=== PATIENT | male | born 1960 | race Caucasian/White ===

== ENCOUNTER → 2017-01-10 | Outpatient (CLI) | payer OTHER ==
--- NOTE | 2017-01-11 05:54 | PAP/PSG TECHNICIAN REPORT ---
[facility] Tuber Helper Polysomnogram Report Study name: None Report date: 01/11/2017 Study date: 01/10/2017 Referring Physician: Von Kirby M.D. Name: ERICK SHANON Interpreting Physician: Baljit Kirby M.D. Date of : 1960 Tuber Helper: HOANG Edwards. Sex: Male Age: 56 StudyType: PSG Weight: 219 lbs Height: 56 years, Height 6' 2" Neck Circum:16.75 inches BMI: 28.11 Medications: Zoloft 60mg, Flonase 50mcg/act Patient History Study started on room air with ETCO2 monitoring in room #5. 56 yr old male here tonight for a possible split psg. He complains of EDS, loud snoring and gasping while sleeping. His ESS=8/24.Neck circ=16.75inches Parameters Monitored NPSG: E1-M2, E2-M1, Fp1-M2, Fp2-M1, F3-M2, F4-M2, F4-M1, C3-M2, C4-M2, C4-M1, O1-M2, O2-M2, O2-M1, T3-M2, T4-M1, P3-M2, P4-M1, CHIN1, CHIN2, HR, EKG, Legs, PFLOW, SNOR, FLOW, CFLOW, Tidal Volume, THOR, ABDO, SpO2, PLTH, CPRESS, ETCO2 Wave, ETCO2, pH Sleep Architecture Sleep Stages Time at Lights Off 10:33:07 PM STAGES Time (min.) TST (%) Time at Lights On 5:17:07 AM Wake 68.0 -- Total Recording Time (TRT) 404.00 min. N1 24.0 7 Total Sleep Period (TSP) 394.5 min. N2 195.5 58 Total Sleep Time (TST) 336.0min. N3 62.0 18 Awake Time 68.0 min. REM 54.5 16 Wake after Sleep Onset 63.0 min. Sleep Efficiency (SE) 83 % Sleep Onset Latency (MAURICE) 5.0 min. Number of Stage 1 Shifts None Awakenings 26 Stage Changes 96 Number of REM periods 8 REM 54.5 16 REM Latency 105.5 min. NREM 281.5 84 Body Position Analysis Supine Right Left Side Prone Vertical Total Sleep Time (min.) 10.4 215.5 120.0 335.49 0.0 0.0 Total Sleep Time (%) 0% 64% 36% 100 0% N/A% Total Sleep Time REM (min.) 0.0 32.0 22.5 None 0.0 0.0 Total Sleep Time NREM (min.) 0.5 183.5 97.5 None 0.0 0.0 Intermittent Wake (min.) 9.9 31.5 26.6 None 0.0 0.0 Total Sleep Period (%) 2% None None None None None Arousals Myoclonus (PLM) * Events Count Index Events Count Index Spontaneous 7 1 Events Awake (PLMW) 49 43.2 Respiratory 9 3.4 Events Asleep w/ Arousal (PLMA) 6 1.1 PLM 6 1 Events Asleep w/o Arousal (PLMS) 221 39.5 Snoring 8 1 Total Asleep 227 40.5 Total 30 5 Total 276 41 Respiratory Analysis * CA OA MA CH H RERA Total Count 34 9 6 0 56 0 105 Index 6.1 1.6 1.1 0 10.0 0 18.8 Mean Duration 19.2 28.4 28.9 0.00 25.8 0.0 24.0 Longest Duration 36.8 41.9 36.6 0.00 36.6 0.0 46.9 Respiratory Event Summary Total Supine ~Supine Right Left Prone REM NREM Apneas Count 49 1 48 10 38 N/A 14 35 Index 8.8 118 9 2.8 19.0 N/A 15 7 Hypopneas (4% Desat) Count 56 0 56 21 35 N/A 21 35 Index 10.0 0.0 10 5.8 17.5 N/A 23.1 7.5 Apneas & All Hypopneas Count 105 1 104 31 73 N/A 35 70 Index 18.8 118 19 9 37 N/A 38.5 14.9 Respiratory Events (Regional Operations Manager+All Hyp+RERA) Count 105 1 104 31 73 N/A 35 70 Index 18.8 118 19 8.6 36.5 N/A 38.5 14.9 Respiratory Related Arousal Count 9 1 18 9 9 N/A 5 14 Index 3.4 118 3 3 5 N/A 6 3 Snoring Analysis Supine Right Left Prone REM NREM Total Snore duration 50.8 min Snores count 0 905 772 N/A 319 1,358 1,677 Snore mean duration 1.8 Sec Snores index 0 252 386 N/A 351.2 289.4 299.5 TST with snoring (%) 15.1% SpO2 Analysis Total REM NREM Awake <50% 0.0 min. 0.0 min. 0.0 min. 0.0 min. 51 - 60% 0.0 min. 0.0 min. 0.0 min. 0.0 min. 61 - 70% 0.0 min. 0.0 min. 0.0 min. 0.0 min. 71 - 80% 0.0 min. 0.0 min. 0.0 min. 0.0 min. 81 - 90% 217.8 min. 39.9 min. 157.3 min. 20.5 min. 91 - 100% 170.4 min. 14.3 min. 123.5 min. 32.6 min. Average 90 89 90 91 Minimum SpO2 78 83 84 78 Desaturation Event Index 17.5 38.5 13.6 19.4 # Desat. Events below 89% 76 28 39 9 Time(%) with Saturation below 89% 11.4 4.8 5.4 1.2 Time(min.) with Saturation below 89% 44.2 18.6 21.0 4.6 Heart Rate Analysis End Tidal CO2 Analysis Min (bpm) Max (bpm) Average (bpm) TSP (mins) % of TSP Awake 50 255 61 Above 55 mmHg 0.0 0.0 NREM 47 102 57 50-55 mmHg 0.0 0.0 REM 50 90 62 45-50 mmHg 63.7 19.0 Overall 47 102 58 40-45 mmHg 176.1 52.4 35-40 mmHg 68.9 20.5 30-35 mmHg 22.0 6.5 Average ETCO2 0.3 Supplemental O2 Values Minimum O2 level: None Value Start Time End Time Tuber Helper Comments Mr. Humphrey slept in the right, left and supine and positions. No cardiac arrhythmia noted. PLM's noted. No bruxism noted. Snoring was noted and scored as a 3 on a scale of 1 through 5. (0=no snoring, 5=snoring loud enough to be heard through a closed door or down the [address] way) He awoke to use the restroom 2 times during the night. He stated that he slept a little worse than usual. The final report will be interpreted and signed by a sleep physician. The completed physician report will then be placed in the patient medical record. Therapy (cm H2O) 0 TIB (min.) 404.0 TST (min.) 336.0 Sleep Onset (min.) 5.0 REM Onset From Sleep (min.) 105.5 Sleep Efficiency % 83 Wakefulness (%) 17 Wakefulness (min.) 68.0 NREM 1 (%) 7 NREM 1 (min.) 24.0 NREM 2 (%) 58 NREM 2 (min.) 195.5 NREM 3 (%) 18 NREM 3 (min.) 62.0 REM (%) 16 REM (min.) 54.5 # Arousals 30 Arousal Index 5 # Snore 1,677 Snore Index 299.5 AHI 18.8 AHI Supine 118 AHI Non-Supine 19 NREM AHI 14.9 REM AHI 38.5 RDI 18.8 # Obstructive Apnea 9 # Central Apnea 34 # Mixed Apnea 6 # Hypopneas 56 RERAs 0 Total Respiratory Events 107 Time Below SpO2 89% (min.) 39.6 Mean NREM SpO2 (%) 90 Mean REM SpO2 (%) 89 Mean Sleep SpO2 (%) 90 Min NREM SpO2 (%) 84 Min REM SpO2 (%) 83 Position Supine (min.) 10.4 Position Non-supine (min.) 335.5 LM Index Sleep 40.5 LM Index NREM 46.3 LM Index REM 11.0 Mean Heart Rate (bpm) 58 Min Heart Rate (bpm) 47
--- NOTE | 2017-01-27 07:52 | POLYSOMNOGRAPH REPORT ---
REFERRING PERSON: Dr. Taylor Kirby. SOLE SCRAPER: Joceline Moses. Mr. Humphrey is a 56-year-old male sent for a baseline sleep study. He complains of excessive daytime sleepiness, loud snoring, and gasping while sleeping. His [place] sleepiness scale score on the evening of this study is 8. BMI is 28.11. Following the technical and digital specifications of the [employer] (AASM) a standard diagnostic polysomnogram was performed monitoring EEG, EOG, EMG (chin and leg deviations), oxygen saturation, body position, digital video, respiratory effort and airflow. The sleep Stage and event scoring was based on the AASM Manual for the Scoring of Sleep and Associated Events 2007 edition. Apneas are defined as a drop in the peak thermal sensor excursion by >90% of baseline for at least 10 seconds. Hypopneas were scored using the 4% oxygen desaturation rule (4A-Medicare) and a decrease in the nasal pressure excursions by >30% of baseline for at least 10 seconds. Respiratory effort-related arousal (RERA's) is defined as a sequence of breaths lasting at least 10 seconds characterized by increasing respiratory effort or flattening of the nasal pressure waveform leading to an arousal from sleep when the sequence of breaths does not meet criteria for an apnea or hypopnea. Apnea Hypopnea index (AHI) is defined as the number of apneas and hypopneas occurring in an hour of sleep. Respiratory disturbance index (RDI) is defined as the number of apneas, hypopneas, and RERA's occurring in an hour of sleep. Mr. Humphrey total sleep period time was 394.5 minutes. Total sleep time was 336 minutes. Sleep efficiency is 83%. Latency to sleep onset was 5 minutes with wake after sleep onset of 63 minutes. Total non-REM sleep time was 281.5 minutes. He spent 7% of that time in N1 sleep, 58% in N2 sleep and 18% in N3 sleep. REM latency was 105.5 minutes. Total REM sleep time was 54.5 minutes or 15% of total sleep time. There were 30 cortical arousals from sleep. Eight of these arousals were due to snoring, 6 were due to periodic limb movements, 9 were due to respiratory events, and 7 were spontaneous. There were 227 periodic limb movements noted on this test. Limb movement index was 40.5. Limb movement with arousal index was 1.1. There were 34 central apneas, 9 obstructive apneas and 6 mixed apneas on this test. Additionally, there were 54 hypopnea, most of which looked obstructive. Apnea-hypopnea index was 18.8 consistent with moderately severe sleep apnea. Supine AHI was 118 and REM AHI was 38.5. 1677 snoring events were recorded. Total sleep time with snoring was 15.1%. Mean saturation was 90% with desaturations to 78%. Saturations were less than 89% for 44.2 minutes of recorded time. There was no cardiac ectopy noted on this study. Mr. Corona heart rate ranged from a low of 47 beats per minute to a high of 102 beats per minute during sleep. End-tidal CO2 was recorded on this test. End-tidal CO2s were between 45 and 50 mmHg for 19% of total sleep period time, between 40 and 45 mmHg for 52.4%, between 35 and 40 mmHg for 20.5% and between 30 and 35 mmHg for 6.5% of total sleep period time. IMPRESSION AND PLAN: 56-year-old male with evidence of moderately severe sleep apnea, both central and obstructive type, but predominantly obstructive type associated with significant nocturnal hypoxemia. 1. This patient would likely benefit from positive airway pressure therapy. He should return to the sleep lab for a full night titration and then based on those results be started on equipment at home. A download from his machine can be reviewed in 1 month both to check compliance as well as AHI and further pressure adjustments can occur at that time. 2. Should this patient be unwilling or unable to tolerate CPAP therapy, he should be referred to ear, nose and throat or oral surgery/dental medicine to discuss alternative treatments for sleep disorder breathing.
== END | disposition home or self-care (01) ==
LOC: C.NEUR 20:00
PROVIDERS: ATTEND Family Medicine
DX: R06.83 Snoring (principal); G47.10 Hypersomnia, unspecified

== ENCOUNTER → 2017-03-01 | Outpatient (CLI) | payer OTHER ==
--- NOTE | 2017-03-02 06:46 | PAP/PSG TECHNICIAN REPORT ---
[facility] Sr. Manager Marketing Polysomnogram Report Study name: None Report date: 03/02/2017 Study date: 03/01/2017 Referring Physician: Von Kirby M.D. Name: ERICK SHANON Interpreting Physician: Baljit Kirby M.D. Date of : 1960 Sr. Manager Marketing: HOANG Edwards. Sex: Male Age: 56 StudyType: PSG PAP Weight: 219 lbs Height: 56 years, Height 6' 2" Neck Circum:16.75inches BMI: 28.11 Medications: Zoloft 60mg, Flonase 50mcg/act Patient History Study started on room air with 4cwp cpap in room #8. 56 yr old male here tonight for a new titration study. He had a diagnostic psg done here on 01/10/17 that had an AHI of 18.8. His ESS=8/24. Neck circ=16.75inches. Parameters Monitored NPSG: E1-M2, E2-M1, Fp1-M2, Fp2-M1, F3-M2, F4-M2, F4-M1, C3-M2, C4-M2, C4-M1, O1-M2, O2-M2, O2-M1, T3-M2, T4-M1, P3-M2, P4-M1, CHIN1, CHIN2, HR, EKG, Legs, PFLOW, SNOR, FLOW, CFLOW, Tidal Volume, THOR, ABDO, SpO2, PLTH, CPRESS, ETCO2 Wave, ETCO2, pH Sleep Architecture Sleep Stages Time at Lights Off 9:54:02 PM STAGES Time (min.) TST (%) Time at Lights On 6:09:32 AM Wake 85.5 -- Total Recording Time (TRT) 496.00 min. N1 27.0 7 Total Sleep Period (TSP) 484.5 min. N2 282.0 69 Total Sleep Time (TST) 410.0min. N3 32.5 8 Awake Time 85.5 min. REM 68.5 17 Wake after Sleep Onset 74.5 min. Sleep Efficiency (SE) 83 % Sleep Onset Latency (MAURICE) 11.0 min. Number of Stage 1 Shifts None Awakenings 30 Stage Changes 112 Number of REM periods 4 REM 68.5 17 REM Latency 134.5 min. NREM 341.5 83 Body Position Analysis Supine Right Left Side Prone Vertical Total Sleep Time (min.) 35.7 263.0 132.0 394.99 0.0 0.0 Total Sleep Time (%) 4% 64% 32% 96 0% N/A% Total Sleep Time REM (min.) 0.0 66.5 2.0 None 0.0 0.0 Total Sleep Time NREM (min.) 15.0 196.5 130.0 None 0.0 0.0 Intermittent Wake (min.) 20.7 15.8 49.0 None 0.0 0.0 Total Sleep Period (%) 7% None None None None None Arousals Myoclonus (PLM) * Events Count Index Events Count Index Spontaneous 32 5 Events Awake (PLMW) 88 61.8 Respiratory 8 1.6 Events Asleep w/ Arousal (PLMA) 3 0.4 PLM 2 0 Events Asleep w/o Arousal (PLMS) 248 36.3 Snoring 5 1 Total Asleep 251 36.7 Total 47 7 Total 339 41 Respiratory Analysis * CA OA MA CH H RERA Total Count 12 6 0 0 9 1 27 Index 1.8 0.9 0.0 0 1.3 0 4.1 Mean Duration 17.6 16.7 0.0 0.00 27.5 60.6 22.1 Longest Duration 25.7 24.2 0.0 0.00 0.0 60.6 60.6 Respiratory Event Summary Total Supine ~Supine Right Left Prone REM NREM Apneas Count 18 4 14 5 9 N/A 3 15 Index 2.6 16 2 1.1 4.1 N/A 3 3 Hypopneas (4% Desat) Count 9 2 7 0 7 N/A 0 9 Index 1.3 8.0 1 0.0 3.2 N/A 0.0 1.6 Apneas & All Hypopneas Count 27 6 21 5 16 N/A 3 24 Index 4.0 24 3 1 7 N/A 2.6 4.2 Respiratory Events (Radiologic Technology Teacher+All Hyp+RERA) Count 27 6 22 6 16 N/A 3 24 Index 4.1 24 3 1.4 7.3 N/A 2.6 4.4 Respiratory Related Arousal Count 8 6 10 1 9 N/A 0 11 Index 1.6 4 2 0 4 N/A 0 2 Snoring Analysis Supine Right Left Prone REM NREM Total Snore duration 1.4 min Snores count 4 17 28 N/A 5 44 49 Snore mean duration 1.7 Sec Snores index 16 4 13 N/A 4.4 7.7 7.2 TST with snoring (%) 0.3% Desaturation Event Summary: Minimum %SpO2 Event Count Mean/Min/Max Duration(sec.) Desaturation Index % Time In Bed > 90 33 24.9 / 10.8 / 60.0 6.9 59.8 86 - 90 8 22.1 / 8.0 / 38.0 2.5 40.0 81 - 85 0 N/A 0.0 0.1 76 - 80 0 N/A 0.0 0.0 71 - 75 0 N/A 0.0 0.0 66 - 70 0 N/A 0.0 0.0 61 - 65 0 N/A 0.0 0.0 56 - 60 0 N/A 0.0 0.0 51 - 55 0 N/A 0.0 0.0 < 50 0 N/A 0.0 0.0 Total REM NREM Awake <50% 0.0 min. 0.0 min. 0.0 min. 0.0 min. 51 - 60% 0.0 min. 0.0 min. 0.0 min. 0.0 min. 61 - 70% 0.0 min. 0.0 min. 0.0 min. 0.0 min. 71 - 80% 0.0 min. 0.0 min. 0.0 min. 0.0 min. 81 - 90% 192.9 min. 38.2 min. 137.1 min. 17.6 min. 91 - 100% 287.3 min. 30.1 min. 202.0 min. 55.3 min. Average 91 91 91 92 Minimum SpO2 82 87 85 82 Desaturation Event Index 4.6 0.0 3.7 12.6 # Desat. Events below 89% 13 N/A 4 9 Time(%) with Saturation below 89% 2.8 0.6 1.6 0.6 Time(min.) with Saturation below 89% 13.4 2.8 7.7 2.8 Time (mins) REM (mins) NREM (mins) % of TST SpO2 Below 90% 16 N/A N16 16.0 SpO2 Below 88% 2 0 0 0 Heart Rate Analysis Min (bpm) Max (bpm) Average (bpm) Awake 38 155 61 NREM 45 155 59 REM 54 89 65 Overall 45 155 60 Supplemental O2 Values Minimum O2 level: None Value Start Time End Time Sr. Manager Marketing Comments Mr. Humphrey slept in the right, left and supine positions. No cardiac arrhythmia noted. PLM's noted. No bruxism noted. CPAP was initiated at +4 CMH2O and up-titrated to an optimal level of +9 CMH2O, which nearly eliminated all respiratory events and snoring. A large Sim[employer] full face mask by Steve was used during titration. He did not use the restroom during the night. He stated that he slept well. The final report will be interpreted and signed by a sleep physician. The completed physician report will then be placed in the patient medical record. Therapy Event: Therapy (cm H20) 4 5 6 7 8 9 Total Time at Pressure (min.) 26.4 317.9 45.1 7.6 49.9 48.7 TST at Pressure (min.) 9.0 299.8 34.1 6.6 14.4 46.2 # Periods 1 1 1 1 1 1 Sleep Onset (min.) 11.0 0.1 0.0 0.0 0.0 0.0 REM Onset (min.) N/A 119.1 0.0 N/A N/A 41.2 Sleep Efficiency % 34 94 75 86 28 94 Wakefulness (%) 66.0 5.7 24.4 13.2 71.2 5.1 Wakefulness (min.) 17.4 18.1 11.0 1.0 35.5 2.5 NREM 1 (%) 7.6 2.8 9.7 34.8 12.0 6.2 NREM 1 (min.) 2.0 9.0 4.4 2.6 6.0 3.0 NREM 2 (%) 26.5 63.2 45.5 52.0 16.8 84.6 NREM 2 (min.) 7.0 201.0 20.5 3.9 8.4 41.2 NREM 3 (%) 0.0 10.2 0.0 0.0 0.0 0.0 NREM 3 (min.) 0.0 32.5 0.0 0.0 0.0 0.0 REM (%) 0.0 18.0 20.4 0.0 0.0 4.1 REM (min.) 0.0 57.3 9.2 0.0 0.0 2.0 # Arousals 3 19 8 6 8 3 Arousal Index 20.0 3.8 14.1 54.8 33.4 3.9 # Snore 2 27 2 8 5 5 Snore Index 13.3 5.4 3.5 73.1 20.9 6.5 AHI 26.7 1.0 7.0 45.7 20.9 5.2 AHI Supine N/A N/A N/A N/A 91.1 17.5 AHI Non-Supine 26.7 1.0 7.0 45.7 13.8 0.0 NREM AHI 26.7 0.5 9.7 45.7 20.9 5.4 REM AHI N/A 3.1 0.0 N/A N/A 0.0 RDI 26.7 1.2 7.0 45.7 20.9 5.2 # Obstructive 0 2 2 2 0 0 # Central Ap 0 3 2 2 1 4 # Mixed 0 0 0 0 0 0 # Hypopneas 4 0 0 1 4 0 RERAS 0 1 0 0 0 0 Total Respiratory Events 4 6 4 5 5 4 Time Below SpO2 89.00% (min.) 5.3 5.1 0.0 0.0 0.0 0.1 Mean NREM SpO2 (%) 88 91 91 92 92 91 Mean REM SpO2 (%) N/A 90 93 N/A N/A 89 Mean Sleep SpO2 (%) 88 91 92 92 92 91 Min NREM SpO2 (%) 85 88 89 89 89 88 Min REM SpO2 (%) N/A 87 90 N/A N/A 89 Position Supine (min.) 0.0 0.0 0.0 0.0 1.3 13.7 Position Non-supine (min.) 9.0 299.8 34.1 6.6 13.1 32.5 LM Index Sleep 100.0 46.4 1.8 0.0 0.0 3.9 LM Index NREM 100.0 56.2 2.4 0.0 0.0 4.1 LM Index REM N/A 5.2 0.0 N/A N/A 0.0 Mean Heart Rate (bpm) 62 62 58 52 52 54 Min Heart Rate (bpm) 58 49 48 47 45 45
--- NOTE | 2017-03-09 14:45 | POLYSOMNOGRAPH REPORT ---
REFERRING PERSON: Dr. Taylor Kirby. AIRCRAFT FUSELAGE FRAMER: Joceline Moses. Mr. Humphrey is a 56-year-old male sent for a CPAP titration study. He had a diagnostic PSG performed on 01/10/2017, which showed an AHI of 18.8. His Dexter sleepiness scale score on the evening of this study is 8. BMI is 28.11. Following the technical and digital specifications of the [employer] (AASM) a standard diagnostic polysomnogram was performed monitoring EEG, EOG, EMG (chin and leg deviations), oxygen saturation, body position, digital video, respiratory effort and airflow. The sleep Stage and event scoring was based on the AASM Manual for the Scoring of Sleep and Associated Events 2007 edition. Apneas are defined as a drop in the peak thermal sensor excursion by >90% of baseline for at least 10 seconds. Hypopneas were scored using the 4% oxygen desaturation rule (4A-Medicare) and a decrease in the nasal pressure excursions by >30% of baseline for at least 10 seconds. Respiratory effort-related arousal (RERA's) is defined as a sequence of breaths lasting at least 10 seconds characterized by increasing respiratory effort or flattening of the nasal pressure waveform leading to an arousal from sleep when the sequence of breaths does not meet criteria for an apnea or hypopnea. Apnea Hypopnea index (AHI) is defined as the number of apneas and hypopneas occurring in an hour of sleep. Respiratory disturbance index (RDI) is defined as the number of apneas, hypopneas, and RERA's occurring in an hour of sleep. Mr. Humphrey total sleep period time was 484.5 minutes. Total sleep time was 410 minutes. Sleep efficiency was 83%. Latency to sleep onset was 11 minutes with wake after sleep onset of 74.5 minutes. He spent 7% of his sleep time in N1 sleep, 69% in N2 sleep and 8% in N3 sleep. REM latency was 134.5 minutes. Total REM sleep time was 68.5 minutes or 17% of total sleep time. There were 47 cortical arousals from sleep. 32 of these arousals were spontaneous, 8 were due to respiratory events, 2 due to periodic limb movements of sleep and 5 were due to snoring. There were 251 periodic limb movements noted on this test. Limb movement index was 36.7; however, limb movement with arousal index was 0.4. There were 12 central, 6 obstructive and no mixed apneas on this titration. Additionally, there were 9 hypopneas and 1 RERA. Apnea-hypopnea index was 4. 49 snoring events were recorded. Total sleep time with snoring was 0.3%. Mean saturation was 93% with desaturations to 82%. Saturations were less than 89 for 13.4 minutes of recorded time. There was no cardiac ectopy noted on this study. Heart rates while awake were recorded as 155 beats per minute, but this appears to be artifactual. Maximum heart rate really appears to be 89 beats per minute. As stated above, this was a CPAP titration study. This patient chose a large [employer] full face mask for the titration. He was titrated from a CPAP pressure of 4 to a CPAP pressure of 9 over the course of the night. Increasing pressures were needed to prevent apneas, hypopneas and arousals. He was observed for 46.2 minutes of sleep time on a pressure of 9. Two of those minutes was spent in non-supine REM sleep. AHI and RDI on this pressure were both 5.2 and there were saturations less than 89 for only 0.1 minutes of recorded time. IMPRESSION AND PLAN: Successful, but suboptimal CPAP titration study in this patient with known obstructive sleep apnea. I would recommend that he be started on auto titrating CPAP with pressures of 9-12 cm. A download from his machine can be reviewed in 1 month both to check compliance as well as AHI and then he can be set to optimal pressure at that time.
== END | disposition home or self-care (01) ==
LOC: C.NEUR 20:00
PROVIDERS: ATTEND Family Medicine
DX: G47.10 Hypersomnia, unspecified (principal); R06.83 Snoring